=== PATIENT | male | born 1955 | race Caucasian/White ===

== ENCOUNTER 2018-01-14 16:34 | Emergency (ER) | payer OTHER ==
[~2018-01-14] VITALS: Ht 193 cm; Wt 136.1 kg
[~2018-01-14 16:34] MED LIST: 'BIAXIN500 MG PO; AMOXICILLIN500 M1 PO; BACTRIM DS 8001 TA1 PO; CELEBREX200 MG PO; CELEBREX50 MG PO; CYMBALTA30 MG PO; FLOMAX0.4 MG PO; LIBRAX 2.5/5 51 CAP PO; LOMOTIL 0.025 M1 TA1 PO; NORTRIPTYLINE10 MG PO; PAROXETINE HCL20 MG PO; PERCOCET 325 MG1 TA2 PO; PHENERGAN25 M1 PO; ZESTRIL10 MG PO; ZOFRAN ODT4 MG SL; ZOLOFT50 MG PO; [UNRECOGNIZED DRUG - OTHER] PO
[2018-01-14] MEDS ORDERED: KENALOG 0.1%80 GM T (16:46)
[2018-01-14] MEDS ORDERED: CEPHALEXIN500 M1 PO (16:46)
== END 2018-01-14 16:51 | disposition home or self-care (01) ==
LOC: ED 16:34
DX: T14.8XXA Other injury of unspecified body region, initial encounter (principal); Z90.49 Acquired absence of other specified parts of digestive tract; Z79.899 Other long term (current) drug therapy; Z88.8 Allergy status to other drugs, medicaments and biological substances; Z87.442 Personal history of urinary calculi; W57.XXXA Bitten or stung by nonvenomous insect and other nonvenomous arthropods, initial encounter; Y93.89 Activity, other specified; Y92.89 Other specified places as the place of occurrence of the external cause; Y99.8 Other external cause status

== ENCOUNTER → 2019-02-28 | Outpatient (CLI) | payer OTHER ==
[~2019-02-28] MED LIST changes: +ASPIRIN CHEWABL81 M1 PO; +CEPHALEXIN500 M1 PO; +KENALOG 0.1%80 GM T
[2019-02-28 16:06] LABS: ALBUMIN 3.5 gm/dl (3.1-4.5); CREATININE 1.69 mg/dL (0.70-1.30); POTASSIUM 4.2 mmol/L (3.5-5.1); TOTAL PROTEIN 7.1 gm/dL (6.4-8.2)
== END | disposition home or self-care (01) ==
LOC: LAB 15:03
PROVIDERS: Orthopaedic Surgery
DX: Z79.1 Long term (current) use of non-steroidal anti-inflammatories (NSAID) (principal)